=== PATIENT | female | born 1980 | race African-American/Black ===

== ENCOUNTER 2025-05-21 18:31 | Inpatient (IN) | payer SELFPAY ==
[~2025-05-21] VITALS: Ht 162.6 cm; Wt 68.9 kg
[2025-05-21 18:34] VITALS: O2SAT 100
[2025-05-21 19:17] LABS: BASOPHILS % 0.6 % (0.0-2.0); EOSINOPHILS % 1.3 % (0.0-5.0); HEMATOCRIT. 30.7 % (36.0-48.0); HEMOGLOBIN. 10.2 g/dL (12.0-16.0); LYMPHOCYTES % 34.5 % (20.0-50.0); MEAN PLATELET VOLUME 8.4 fl (7.4-10.4); MONOCYTES % 14.9 % (2.0-8.0); NEUTROPHILS % 48.7 % (40.0-76.0); PLATELET 377 x1000/uL (130-400); RED BLOOD CELL COUNT 3.71 mill/uL (4.2-5.4); RED CELL DISTRIBUTION WIDTH 15.0 % (11.6-14.6)
[2025-05-21 19:33] LABS: CREATININE 0.8 mg/dL (0.6-1.0)
[2025-05-21 19:34] LABS: TROPONIN I HIGH SENSITIVITY < 4 ng/L (3.0-34); UREA NITROGEN BLOOD < 5 mg/dL (9-23)
[2025-05-21 19:35] LABS: ASPARTATE AMINOTRANSFERASE 20 IU/L (<34)
[2025-05-21 19:36] LABS: BILIRUBIN DIRECT 0.3 mg/dL (<=3.0); BILIRUBIN TOTAL 1.0 mg/dL (0.1-1.0); PROTEIN TOTAL 7.4 g/dL (6.0-8.3)
[2025-05-21 19:37] LABS: HCG SCREEN NEGATIVE
[2025-05-21 19:38] LABS: INR 1.0
[2025-05-21] MEDS: KETOROLAC 30MG/ML VIAL IV ONE (19:51)
[2025-05-21 22:14] LABS: TROPONIN I HIGH SENSITIVITY < 4 ng/L (3.0-34)
[2025-05-21] MEDS: HYDROCODONE/ACETAMINOPHEN 5/325MG TABLET PO ONE (22:18)
[2025-05-21 23:00] VITALS: BP 119/54; PULSE 98; RESP 18; TEMP 36.696
[2025-05-21 23:21] LABS: TROPONIN I HIGH SENSITIVITY < 4 ng/L (3.0-34)
[2025-05-22] MEDS: IOHEXOL-350 100 ML BOTTLE ONE (00:01)
[2025-05-22] MEDS ORDERED: NAPR-1486 MT (01:17)
[2025-05-22] MEDS ORDERED: CYCL5TAB3 PO (01:17)
[2025-05-22] MEDS ORDERED: ACETAMINOPHEN 325MG TABLET PO PRN (01:30)
[2025-05-22 04:00] VITALS: BP 117/73; PULSE 79; RESP 18; TEMP 36.3; O2SAT 100
[2025-05-22 08:11] LABS: CREATININE 0.8 mg/dL (0.6-1.0)
[2025-05-22 08:12] LABS: LDL CHOLESTEROL 86 mg/dL (5-100); TRIGLYCERIDE 49 mg/dL (0-150); UREA NITROGEN BLOOD < 5 mg/dL (9-23)
[2025-05-22] MEDS: METOPROLOL TARTRATE 50MG TABLET PO SCH (08:36)
[2025-05-22] MEDS: ASPIRIN 81MG TABLET PO SCH (08:36)
[2025-05-22 08:37] VITALS: BP 124/81; PULSE 81; RESP 18
[2025-05-22] MEDS: HYDROCODONE/ACETAMINOPHEN 5/325MG TABLET PO PRN (08:37)
[2025-05-22] MEDS: ENOXAPARIN 40MG/0.4ML SYR SUBCUT SCH (08:38)
[2025-05-22] MEDS ORDERED: BUSP10TA4 MT (11:34)
[2025-05-22] MEDS ORDERED: ATORVASTATIN CALCIUM 20MG TABLET PO SCH (21:00)
== END 2025-05-22 14:00 | disposition home or self-care (01) | DRG 203 ==
LOC: ER 18:31 → 5WST 23:08 → EDBEDREQ 23:12 → EDBEDREQTM 23:12 → ENRESERV 23:23 → 5WST 05-22 00:10
PROVIDERS: ADMIT Internal Medicine; ATTEND Internal Medicine
DX: R07.89 Other chest pain (principal); D64.9 Anemia, unspecified; F41.0 Panic disorder [episodic paroxysmal anxiety]; E87.6 Hypokalemia; M48.061 Spinal stenosis, lumbar region without neurogenic claudication; Z79.899 Other long term (current) drug therapy
CPT/HCPCS: 36415; 71045; 71275; 80048; 80061; 80076; 83735; 83880; 84484; 84703; 85025; 85379; 93005; 96374; 99285; J1650; J1885; Q9967

== ENCOUNTER 2025-07-05 10:21 | Emergency (ER) | payer OTHER ==
[~2025-07-05] VITALS: Ht 172.7 cm; Wt 70.0 kg
[~2025-07-05 10:21] MED LIST: BUSP10TA4 MT; CYCL5TAB3 PO; NAPR-1486 MT
[2025-07-05 10:24] VITALS: TEMP 37.1; O2SAT 100
[2025-07-05] MEDS ORDERED: BUSP15TA3 MT (11:10)
[2025-07-05] MEDS ORDERED: CYCL10TA21 MT (11:10)
[2025-07-05 11:19] VITALS: BP 115/79; PULSE 94; RESP 18; O2SAT 100
== END 2025-07-05 11:22 | disposition home or self-care (01) ==
LOC: ER 10:51
DX: R07.89 Other chest pain (principal); F41.9 Anxiety disorder, unspecified; Z79.1 Long term (current) use of non-steroidal anti-inflammatories (NSAID); Z91.148 Patient's other noncompliance with medication regimen for other reason
CPT/HCPCS: 99283